=== PATIENT | female | born 1990 | race American Indian/Alaskan Native ===

== ENCOUNTER 2017-01-05 19:26 | Inpatient (IN) | payer MEDICAID ==
[2017-01-05] MEDS ORDERED: LACTATED RINGERS 500 ML IV ONE (20:12)
[2017-01-05 20:49] LABS: Bacteria,Urine 1+ /HPF (Negative); Bilirubin,Urine NEG (Negative); Blood,Urine NEG (Negative); Ketones,Urine 80 mg/dL (Negative); Leukocyte Esterase,Urine LG (Negative); Mucus,Urine 2+ /HPF; Nitrite,Urine NEG (Negative)
[2017-01-05] MEDS ORDERED: TYLENOL PO ONE (21:39)
[2017-01-05] MEDS ORDERED: VISTARIL PO ONE (21:42)
[2017-01-05 21:53] LABS: Basophils % (Auto) 0.3 % (0.0-1.8); Eosinophils % (Auto) 0.7 % (0.0-4.3); Hematocrit 28.7 % (30.3-42.9); Hemoglobin 8.8 gm/dl (10.1-14.3); Mean Corpuscular HGB Conc 31 % (30-34); Platelet Count 144 K/mm3 (140-440); Red Blood Count 4.21 M/mm3 (3.65-5.03); Red Cell Distribution Width 17.3 % (13.2-15.2); White Blood Count 11.2 K/mm3 (4.5-11.0)
[2017-01-05 22:10] LABS: Mean Corpuscular Volume 68 fl (79-97)
[2017-01-05 22:11] LABS: Mean Corpuscular Hemoglobin 21 pg (28-32)
[2017-01-05 22:13] LABS: Alanine Aminotransferase 7 units/L (7-56); Albumin 3.2 g/dL (3.9-5); Albumin/Globulin Ratio 0.9 %; Alkaline Phosphatase 111 units/L (35-129); Anion Gap 27 mmol/L; Blood Urea Nitrogen 4 mg/dL (7-17); Calcium 8.8 mg/dL (8.4-10.2); Carbon Dioxide 12 mmol/L (22-30); Chloride 98.1 mmol/L (98-107); Glucose 71 mg/dL (65-100); Potassium 3.7 mmol/L (3.6-5.0); Sodium 133 mmol/L (137-145); Total Protein 6.6 g/dL (6.3-8.2)
--- NOTE | 2017-01-05 22:32 | History and Physical Report ---
History of Present Illness Date of examination: 01/05/17 Chief complaint: Right side and pelvic pain History of present illness: This is a 26-year-old female 3 para 1102 who presents to triage complaining of right side and pelvic pain. She was evaluated in the office today without any complaints however she states shortly after she got home she started having right sided pain that became progressively worse. The pain radiated down into her pelvis. She had 1 episode of vomiting. However she denies fever and chills. Patient is a pain is severe and constant with exacerbations and worsening of pain every minute. She admits to positive movement she denies rupture of membranes or vaginal bleeding. Past History : 3 Term Births: 1 Premature Births: 1 Living Children: 2 Para: 1 Mult. Births: 0 Prev : 0 Prev. attempt? 0 Aborta: 0 Elect. Ab: 0 Spont. Ab: 0 Ectopics: 0 # 1 Delivery date: 11/24/2013 Weeks Gestation: 37 labor: no Delivery type: Hours of labor: 23 Anesthesia type: epidural Delivery location: [facility] Infant Sex: Male weight: 6-11 Name: Jabari # 2 Delivery date: 11/27/2014 Weeks Gestation: 36 Delivery type: Vaginal Anesthesia type: epidural Delivery location: [facility] Infant Sex: male weight: 5.81 Comments: rupture of membranes Past Medical History: Reviewed history from 08/28/2014 and no changes required: Negative Past Medical History Past Surgical History: Reviewed history from 08/28/2014 and no changes required: negative Past Medical History Anesthesia Complications: negative Anemia: negative Autoimmune Disorder: negative Bleeding Disorder: negative Blood Transfusions: negative Breast Disease: negative Diabetes: negative Heart Disease: negative Hypertension: negative Hepatitis/Liver Disease: negative Kidney Disease/UTI: negative Neurologic/Epilepsy/Migraines: negative Phlebitis/Varicosities: negative Psychiatric: negative Pulmonary Disease/Asthma: negative Thyroid Disease: negative Hospitalizations: negative Surgery (Non-brush maker): negative Abnormal PAP: negative ASIA Exposure: negative Infertility: negative Uterine Anomaly: negative Uterine Surgery (not C/S): negative Other Gynecologic Problems: negative Social Hx: Engaged [employer] Patient is single Infection History Hx of STD: none HIV Risk Eval: low risk Hepatitis B Risk Eval: low risk Personal hx. of genital herpes: no Partner hx. of genital herpes: no Varicella/Chicken Pox Status: Immunized TB Risk: no Genetic History Congenital Heart Defect: Mom: no Dad: no Mary Disease: Mom: no Dad: no Thalassemia Mom: no Dad: no Neural Tube Defect Mom: no Dad: no Down's Syndrome Mom: no Dad: no Mitch-Sachs Mom: no Dad: no Sickle Cell Disease/Trait Mom: no Dad: no Hemophilia Mom: no Dad: no Muscular Dystrophy Mom: no Dad: no Cystic Fibrosis Mom: no Dad: no [place] Chorea Mom: no Dad: no Mental Retardation Mom: no Dad: no Fragile X Mom: no Dad: no Other Genetic/Chromosomal Disorder Mom: no Dad: no Child w/other defect Mom: no Dad: no Enviromental Exposures Xray Exposure: no Medication, drug, or alcohol use since LMP: no Chemical/Other Exposure: no Exposure to Cat Liter: no Active Medications: None Current Allergies (reviewed today): CODEINE (Critical) Past History - Obstetrical History Expected Date of Delivery: 02/20/17 Actual Gestation: 33 Week(s) 3 Day(s) : 2 Medications and Allergies Allergies Allergy/AdvReac Type Severity Reaction Status Date / Time codeine Allergy Intermediate Vomiting Verified 01/05/17 22:39 morphine Allergy Vomiting Verified 03/20/15 22:52 Penicillins Allergy Vomiting Verified 03/20/15 22:52 Home Medications Medication Instructions Recorded Confirmed Last Taken Type Ondansetron [Zofran ODT TAB] 8 mg PO Q8HR PRN #20 tab.rapdis 03/21/15 Unknown Rx Review of Systems All systems: negative Gastrointestinal: abdominal pain, nausea Genitourinary: pelvic pain, contractions, no leakage of fluid - Vital Signs Vital signs: Vital Signs Temp Pulse Resp BP 98.7 F 113 H 18 128/72 01/05/17 19:34 01/05/17 19:34 01/05/17 19:34 01/05/17 19:34 Temp Pulse Resp BP Pulse Ox 98.7 F 113 H 18 128/72 01/05/17 19:34 01/05/17 19:34 01/05/17 19:34 01/05/17 19:34 Patient is sitting on the side of the bed crying and moaning complaining of excruciating pain - Physical Exam Breasts: Positive: deferred Lungs: Positive: Normal air movement Abdomen: Positive: tenderness (right side) Genitourinary (Female): Positive: normal external genitalia, normal perenium Vulva: both: normal Extremities: Positive: normal - Obstetrical FHR: category 1 Uterine Contraction Monitor Mode: External Cervical Dilatation: 0 Cervical Effacement Percentage: 0 station: -3 Uterine Contraction Pattern: Absent Uterine Tone Measurement Phase: Resting (Negative (B) CVAT and flank pain) Results Result Diagrams: 01/05/17 20:48 01/05/17 21:28 Abnormal lab results 01/05/17 01/05/17 01/05/17 Range/Units 19:40 20:48 21:28 WBC 11.2 H (4.5-11.0) K/mm3 Hgb 8.8 L (10.1-14.3) gm/dl Hct 28.7 L (30.3-42.9) % MCV 68 L (79-97) fl MCH 21 L (28-32) pg RDW 17.3 H (13.2-15.2) % Seg Neutrophils % 77.9 H (40.0-70.0) % Seg Neutrophils # 8.7 H (1.8-7.7) K/mm3 Sodium 133 L (137-145) mmol/L Carbon Dioxide 12 L (22-30) mmol/L BUN 4 L (7-17) mg/dL Creatinine 0.4 L (0.7-1.2) mg/dL Albumin 3.2 L (3.9-5) g/dL Urine WBC (Auto) 39.0 H (0.0-6.0) /HPF U Epithel Cells (Auto) 22.0 H (0-13.0) /HPF All other labs normal. CT scan - abdomen: pending CT scan - pelvis: pending Assessment and Plan - Patient Problems (1) 33 weeks gestation of Current Visit: Yes Status: Acute (2) Pelvic pain Current Visit: Yes Status: Acute Plan to address problem: Patient is afebrile no further vomiting. She has no evidence of chorioamnionitis Will proceed with CT scan to evaluate appendix (3) Right sided abdominal pain Current Visit: Yes Status: Acute
--- NOTE | 2017-01-05 23:53 | Cat Scan Report ---
FINAL REPORT PROCEDURE: CT ABDOMEN PELVIS WO CON TECHNIQUE: Computerized axial tomography of the abdomen and pelvis was performed without intravenous contrast. This study is performed without intravascular contrast material and its sensitivity for abdominal and pelvic pathology, including neoplasms, inflammation, abscess, free fluid, thrombosis, arterial dissection and infarction, is reduced compared with a contrast enhanced study. HISTORY: Evaluate for appendicitis rt sided pain COMPARISON: No prior studies are available for comparison. FINDINGS: Visualized lower thorax: No significant abnormality. Liver: Normal size and attenuation. Spleen: Normal size and attenuation. Gallbladder and biliary system: Normal. Pancreas: Normal. Adrenals: Normal. Kidneys: Normal. GI tract: Small and large bowel loops are within normal limits. Appendix is not distinctly visualized. There are no inflammatory changes in the pericecal region.. Lymph nodes and mesentery: Normal. Vasculature: Normal. Bladder: Normal. Reproductive organs: A well-developed the intrauterine fetus is identified with cephalic presentation. Peritoneum: No free fluid. Musculoskeletal structures: Scoliosis of the thoracolumbar spine is identified. Other: None. IMPRESSION: Appendix is not distinctly visualized. There are no inflammatory changes in the pericecal region. No obvious acute intra-abdominal or pelvic pathology noted.
[2017-01-06] MEDS ORDERED: COLACE PO PRN (00:31)
[2017-01-06] MEDS ORDERED: AMBIEN PO PRN (00:31)
[2017-01-06] MEDS ORDERED: TYLENOL PO PRN (00:31)
[2017-01-06] MEDS ORDERED: BENADRYL PO PRN (00:31)
[2017-01-06] MEDS ORDERED: MILK OF MAGNESIA PO PRN (00:31)
[2017-01-06] MEDS ORDERED: ZOFRAN IV PRN (00:31)
[2017-01-06] MEDS ORDERED: MYLICON PO PRN (00:31)
[2017-01-06] MEDS ORDERED: CELESTONE SOLUSPAN IM SCH (01:00)
[2017-01-06] MEDS: SUBLIMAZE IV PRN ×2 (01:12→05:35)
--- NOTE | 2017-01-06 01:23 | Event Note ---
Date: 01/06/17 Patient still complains of sever pain, CT scan w/o contrast negative, Prelim US report confirms flow to (R) ovary that is nml and AURA 23, vtx. Pain appears to be associated with baby's movements. She does not a surgical abdomen. Will admit for pain control and observation
[2017-01-06] MEDS ORDERED: TORADOL IV ONE (01:26)
[2017-01-06] MEDS: LACTATED RINGERS 1,000 ML IV SCH ×2 (01:54→09:51)
--- NOTE | 2017-01-06 02:16 | Ultrasound Report ---
FINAL REPORT PROCEDURE: US OB LIMITED TECHNIQUE: Real-time limited sonographic examination was performed for evaluation of size, position, heartbeat, fluid volume for each fetus with image documentation (1 or more fetuses). CPT 55725 HISTORY: pelvic pain COMPARISON: No prior studies are available for comparison. FINDINGS: Amniotic fluid index is 23.6 centimeters. Fetus is in a cephalic presentation. Heart rate is 138 beats per minute.. IMPRESSION: Limited exam. Amniotic fluid index is 23.6 centimeters. Fetus is in a cephalic presentation. Heart rate is 138 beats per minute..
--- NOTE | 2017-01-06 07:50 | Progress Note ---
Assessment and Plan 26y/o admitted for right sided abd pain. Patient resting quietly upon entering room. Patient states abd pain is still present, abd palpated soft in all quadrants. back to patient's left side with + fm palpated on right side. Patient groaning with movement during palpation and with audible movement on efm. EFM and toco adjusted - occasional ctx noted on toco. VSSAF. Will consult Dr. ocampo. - Patient Problems (1) 33 weeks gestation of Current Visit: Yes Status: Acute (2) Right sided abdominal pain Current Visit: Yes Status: Acute Subjective - Subjective Date of service: 01/06/17 Principal diagnosis: 33wks; right sided abd pain Patient reports: movement normal (pain with movements) Objective - Vital Signs Vital Signs: Vital Signs - 12hr 01/06/17 01/06/17 01/06/17 01:20 01:23 04:30 Temperature 98.6 F 98.6 F Pulse Rate 99 H Respiratory 16 20 Rate Blood Pressure 116/67 Blood Pressure 116/67 102/57 [Right Arm] 01/06/17 04:44 Temperature Pulse Rate 109 H Respiratory Rate Blood Pressure 102/57 Blood Pressure [Right Arm] - Exam Breasts: deferred Cardiovascular: Regular rate Lungs: Clear to auscultation, Normal air movement Abdomen: Present: normal appearance, soft Uterus: Present: normal FHR: auscultation normal Uterine Contraction Monitor Mode: External Uterine Contraction Pattern: Absent Uterine Tone Measurement Phase: Resting Extremities: normal Deep Tendon Reflex Grade: Normal +2 - Labs Labs: Abnormal Labs 01/05/17 01/05/17 01/05/17 19:40 20:48 21:28 WBC 11.2 H Hgb 8.8 L Hct 28.7 L MCV 68 L MCH 21 L RDW 17.3 H Seg Neutrophils % 77.9 H Seg Neutrophils # 8.7 H Sodium 133 L Carbon Dioxide 12 L BUN 4 L Creatinine 0.4 L Albumin 3.2 L Urine WBC (Auto) 39.0 H U Epithel Cells (Auto) 22.0 H Laboratory Results - last 24 hr 01/05/17 01/05/17 01/05/17 19:40 20:48 21:28 WBC 11.2 H RBC 4.21 Hgb 8.8 L Hct 28.7 L MCV 68 L MCH 21 L MCHC 31 RDW 17.3 H Plt Count 144 Lymph % (Auto) 15.0 [place] % (Auto) 6.1 Eos % (Auto) 0.7 Baso % (Auto) 0.3 Lymph # 1.7 [place] # 0.7 Eos # 0.1 Baso # 0.0 Seg Neutrophils % 77.9 H Seg Neutrophils # 8.7 H Sodium 133 L Potassium 3.7 Chloride 98.1 Carbon Dioxide 12 L Anion Gap 27 BUN 4 L Creatinine 0.4 L Estimated GFR > 60 BUN/Creatinine Ratio 10.00 Glucose 71 Calcium 8.8 Total Bilirubin 0.40 AST 16 ALT 7 Alkaline Phosphatase 111 Total Protein 6.6 Albumin 3.2 L Albumin/Globulin Ratio 0.9 Urine Color Yellow Urine Turbidity Slightly-cloudy Urine pH 6.0 Ur Specific [place] 1.024 Urine Protein 30 mg/dl Urine Glucose (UA) Neg Urine Ketones 80 Urine Blood Neg Urine Nitrite Neg Urine Bilirubin Neg Urine Urobilinogen 2.0 Ur Leukocyte Esterase Lg Urine WBC (Auto) 39.0 H Urine RBC (Auto) 3.0 U Epithel Cells (Auto) 22.0 H Urine Bacteria (Auto) 1+ Urine Mucus 2+ Blood Type Antibody Screen DENNY Antibody Screen 01/06/17 00:31 WBC RBC Hgb Hct MCV MCH MCHC RDW Plt Count Lymph % (Auto) [place] % (Auto) Eos % (Auto) Baso % (Auto) Lymph # [place] # Eos # Baso # Seg Neutrophils % Seg Neutrophils # Sodium Potassium Chloride Carbon Dioxide Anion Gap BUN Creatinine Estimated GFR BUN/Creatinine Ratio Glucose Calcium Total Bilirubin AST ALT Alkaline Phosphatase Total Protein Albumin Albumin/Globulin Ratio Urine Color Urine Turbidity Urine pH Ur Specific [place] Urine Protein Urine Glucose (UA) Urine Ketones Urine Blood Urine Nitrite Urine Bilirubin Urine Urobilinogen Ur Leukocyte Esterase Urine WBC (Auto) Urine RBC (Auto) U Epithel Cells (Auto) Urine Bacteria (Auto) Urine Mucus Blood Type A POSITIVE Antibody Screen Not Reportable DENNY Antibody Screen Negative
--- NOTE | 2017-01-06 08:03 | Admit Criteria Form ---
Admission Criteria Documentation: OBSTETRIC AND GYNECOLOGIC DISEASE GRG Clinical Indications for Admission to Inpatient Care (Place 'X' for any and all applicable criteria): Hospital admission is needed for appropriate care of the patient because of 1 or more of the following (1)(2)(3): [ ]I. Hemodynamic instability, as indicated by 1 or more of the following (1)( 2)(3)(4)(5): [ ]a) Vital signs or other findings not as expected for chronic patient condition or baseline [ ]b) Instability indicated by 1 or more of the following: [ ]i) Hypotension [ ]ii) Symptomatic tachycardia unresponsive to treatment (eg, analgesia, fluids, sedation as indicated) [ ]iii) Inadequate perfusion indicated by 1 or more of the following: [ ]A. Lactic acidosis (greater than 2 mmol/ L) [ ]B. New abnormal capillary refill ( greater than 3 seconds) [ ]C. Reduced urine output [ ]D. New altered mental status [ ]iv) Orthostatic vital sign changes unresponsive to treatment (eg, fluids) [ ]v) Multiple IV fluid boluses required to maintain adequate blood pressure or perfusion [ ]vi) IV inotropic or vasopressor medication required to maintain adequate blood pressure or perfusion [ ]II. Obstetric infection requiring hospitalization indicated by 1 or more of the following(13)(14): [ ]a) Chorioamnionitis [ ]b) Endometritis (except mild endometritis) [ ]c) Pelvic abscess [ ]d) Peritonitis [ ]e) Septic pelvic thrombophlebitis [ ]III. Amniotic fluid or pulmonary embolism(4)(5)(6) [ ]IV. Suspected peritonitis or ectopic requiring monitoring beyond scope of 24 hours or observation care(7)(8) [ ]V. compromise requiring hospitalization indicated by ALL of the following(9)(10): [ ]a) compromise indicated by 1 or more of the following(11): [ ]i) Abnormal heart rate monitoring [ ]ii) Abnormal contraction stress test [ ]iii) Abnormal biophysical profile [ ]iv) Abnormal Doppler flow in vessels (ie, Doppler velocimetry) (12) [ ]b) Persistence of compromise indicators during evaluation and observation monitoring [ ]. Ovarian hyperstimulation syndrome requiring hospitalization[A] indicated by ALL of the following(15): [ ]a) Recent ovarian stimulation with gonadotropins, or evidence on ultrasound of spontaneous emergence of large number of ovarian follicles [ ]b) Evidence of severe ovarian hyperstimulation syndrome indicated by 1 or more of the following: [ ]i) Abdominal pain unresponsive to oral therapy [ ]ii) Acute respiratory distress syndrome [ ]iii) Electrolyte imbalance ( eg, hyponatremia, hyperkalemia) [ ]iv) Elevated liver enzymes [ ]v) Evidence of thromboembolism [ ]vi) Hemoconcentration (hematocrit greater than 45 % (0.45)) [ ]vii) Inability to maintain oral intake adequate to prevent hemoconcentration [ ]viii) Marked hypotension from baseline (eg, SBP 20 mmHg below patients usual pressure) [ ]ix) Oliguria or anuria [ ]x) Ovarian torsion [ ]xi) Pleural or pericardial effusion on x-ray or echocardiogram [ ]xii) Rapid increase in serum creatinine to greater than 1.2 mg/dL (106 micromoles/L) or creatinine clearance less than 50 mL/min/1.73m2 (0.84 mL/ sec/1.73m2) [ ]xiii) Ruptured ovarian cyst with hemorrhage [ ]xiv) Severe abdominal pain or peritoneal signs [ ]xv) Tense ascites that cannot be managed with paracentesis in outpatient setting [ ]VII.Pelvic infection requiring hospitalization indicated by 1 or more of the following (16): [ ]a) Outpatient treatment has failed or is not appropriate (eg, inpatient monitoring required) [ ]b) Pelvic abscess [ ]c) Surgical emergency cannot be excluded (eg, rigid abdomen) [ ]d) Vomiting precluding outpatient and observation care management VIII. loss complications requiring inpatient medical treatment indicated by 1 or more of the following (4)(7)(9): [ ]a) Fever [ ]b) Peritonitis [ ]c) Sepsis [ ]d) Severe abdominal pain [ ]IX. or patient requiring monitoring for severe heart failure, pulmonary disease, or other comorbid condition (eg, peripartum cardiomyopathy) (4)(17) [ ]X. patient with rupture of membranes requiring hospitalization indicated by ANY ONE of the following: [ ]a) Chorioamnionitis, cloudy amniotic fluid, or other evidence of infection [ ]b) compromise or other need for monitoring (11) [ ]c) Gestation longer than 23 weeks and ANY ONE of the following: [ ]i) Abnormal (noncephalic) presentation [ ]ii) Inadequate home environment (eg, home too far from hospital, unable to rapidly return to hospital) [ ]d) Temperature greater than 100.4 degrees F (38 degrees C)( oral) [ ]e) Threatened labor requiring monitoring beyond scope (eg, over 24 hours) of observation Care [ ] XI. complications, including severe lacerations, infections, or retained placenta (19) [ ] XII.Uterine bleeding with high-risk features indicated by ANY ONE of the following (4): [ ]a) Active major hemorrhage (eg, hemorrhage) [ ]b) Coagulopathy with active bleeding [ ]c) Gestational trophoblastic disease (eg, molar ) (20 ) [ ]d) (longer than 23 weeks) and ANY ONE of the following: [ ]i) Pain [ ]ii) Placental abruption, known or suspected [ ]iii) Placenta accrete, known or suspected(21) [ ]iv) Placenta previa, known or suspected [ ]v) Vasa previa [ ]e) Severe anemia [X]XIII. Obstetric or Gynecologic Disease, condition or symptom for which ANY ONE of the following: [ ]a) Emergency and observation care have failed or are not considered appropriate ( Also use General Criteria: Observation Care Criteria as appropriate) [ ]b) Presence of a General Admission Criteria or Pediatric General Admission Criteria The original [facility] content created by [facility] has been revised. The portions of the content which have been revised are identified through the use of italic text or in bold, and [facility] has neither reviewed nor approved the modified material.All other unmodified content is copyright [facility]. Please see references footnoted in the original [facility] edition 2016 Admission Criteria Met: Yes
[2017-01-06 08:33] VITALS: BP 109/57
--- NOTE | 2017-01-06 09:21 | Event Note ---
Date: 01/06/17 dr. ocampo consulted, orders for patient to be NPO. ARRON Canales notified
[2017-01-06] MEDS ORDERED: PRENATAL VITAMIN PO SCH (10:00)
--- NOTE | 2017-01-06 13:51 | Event Note ---
Date: 01/06/17 Patient presently laying in bed does complain of being hungry. Patient revealed to me that on yesterday I believe and off and she did go [employer] and after eating she had multiple episodes of vomiting followed by this right- sided pain. Patient still just has some pain with him movement. Patient imaging all been normal. Possible explanations as musculoskeletal pain. Will treat with Flexeril and follow-up in office in 2 days.
--- NOTE | 2017-01-06 13:56 | Discharge Summary ---
Providers - Providers Date of Admission: 01/06/17 01:01 Date of discharge: 01/06/17 Attending physician: JESUS RAHMAN Primary care physician: JESUS RAHMAN Hospitalization Reason for admission: right side pain in her urine at 33 weeks Pertinent studies: CT scan OB ultrasound IV analgesia's Procedures: monitoring CT scan and ultrasound Hospital course: Please see H&P for details. All imaging the patient return at normal patient pain appears to be consistent with musculoskeletal pain. Patient did have irregular contractions but no evidence of labor. Disposition: DC-01 TO HOME OR SELFCARE - Discharge Diagnoses (1) Musculoskeletal pain Status: Acute (2) 33 weeks gestation of Status: Acute (3) Right sided abdominal pain Status: Acute Core Measure Documentation - Palliative Care Palliative Care/ Comfort Measures: Not Applicable - Core Measures Any of the following diagnoses?: none Exam - Constitutional Vitals: Temp Pulse Resp BP Pulse Ox 98.1 F 112 H 20 109/57 98 01/06/17 08:32 01/06/17 12:48 01/06/17 08:32 01/06/17 08:32 01/06/17 12:48 General appearance: Present: no acute distress - Respiratory Respiratory effort: normal - Cardiovascular Rhythm: regular - Extremities Extremities: no ischemia - Abdominal General gastrointestinal: Present: soft, tender (improve on sides no CVA tenderness) Female genitourinary: Present: deferred - Rectal Rectal Exam: deferred - Integumentary Integumentary: Present: clear, warm, dry Plan Activity: advance as tolerated Diet: regular Additional Instructions: Patient discharged with labor precautions she's follow- up in office on January 08 at 1:30 PM Follow up with: JESUS RAHMAN MD [Primary Care Provider] - 7 Days Prescriptions: Cyclobenzaprine [Flexeril] 10 mg PO TID PRN #14 tablet PRN Reason: Muscle Spasm
[2017-01-06] MEDS ORDERED: FLEXERIL PO ONE (14:44)
== END 2017-01-06 15:51 | disposition home or self-care (01) | DRG 781 ==
LOC: TRG 19:26 → LD 01-06 01:01 → OBSVTOIN 01-06 01:01
PROVIDERS: ADMIT Obstetrics & Gynecology; ATTEND Obstetrics & Gynecology
DX: O99.89 Other specified diseases and conditions complicating pregnancy, childbirth and the puerperium (principal); O26.893 Other specified pregnancy related conditions, third trimester; R10.2 Pelvic and perineal pain; R10.9 Unspecified abdominal pain; M79.1 Myalgia; Z3A.33 33 weeks gestation of pregnancy; Z88.6 Allergy status to analgesic agent; Z88.0 Allergy status to penicillin
CPT/HCPCS: 36415; 74176; 76815; 80053; 81001; 85025; 86850; 86900; 86901; 87086; J0702; J1885; J3010; J7120; Q0177

== ENCOUNTER 2017-02-03 12:46 | Outpatient (CLI) | payer MEDICAID ==
[2017-02-03 13:17] VITALS: BP 120/77
[2017-02-03] MEDS ORDERED: LACTATED RINGERS 500 ML IV ONE (14:00)
[2017-02-03 14:44] LABS: Bilirubin,Urine NEG (Negative); Blood,Urine NEG (Negative); Ketones,Urine NEG (Negative); Leukocyte Esterase,Urine SM (Negative); Mucus,Urine 1+ /HPF; Nitrite,Urine NEG (Negative)
== END 2017-02-03 17:10 | disposition home or self-care (01) ==
LOC: TRG 12:46
PROVIDERS: ATTEND Obstetrics & Gynecology
DX: O47.1 False labor at or after 37 completed weeks of gestation (principal); Z3A.38 38 weeks gestation of pregnancy
CPT/HCPCS: 59025; 81001; 96360; J7120

== ENCOUNTER 2017-02-09 20:16 | Inpatient (IN) | payer MEDICAID ==
[2017-02-09] MEDS ORDERED: ZOFRAN IV PRN (20:46)
[2017-02-09] MEDS ORDERED: MINERAL OIL PO PRN (20:46)
[2017-02-09] MEDS ORDERED: SUBLIMAZE IV PRN (20:46)
[2017-02-09] MEDS ORDERED: ePHEDrine SULFATE IV PRN ×2 (20:46→22:47)
[2017-02-09] MEDS ORDERED: STADOL IV PRN (20:46)
[2017-02-09] MEDS ORDERED: BRETHINE SUB-Q PRN (20:53)
--- NOTE | 2017-02-09 20:54 | History and Physical Report ---
History of Present Illness Date of examination: 02/09/17 Chief complaint: Labor contractions q2-5 minutes x 2 hours. 4cms in office, no 5cms w/ BBOW History of present illness: EDC Calculations LMP: 02/20/2017 EDC Confirmation: 02/20/2017 Gestational Age: 10 3/7 weeks Past History : 3 Term Births: 1 Premature Births: 1 Living Children: 2 Para: 1 Mult. Births: 0 Prev : 0 Prev. attempt? 0 Aborta: 0 Elect. Ab: 0 Spont. Ab: 0 Ectopics: 0 # 1 Delivery date: 11/24/2013 Weeks Gestation: 37 labor: no Delivery type: Hours of labor: 23 Anesthesia type: epidural Delivery location: [facility] Sex: Male weight: 6-11 Name: Jabari # 2 Delivery date: 11/27/2014 Weeks Gestation: 36 Delivery type: Vaginal Anesthesia type: epidural Delivery location: [facility] Sex: male weight: 5.81 Comments: rupture of membranes Past Medical History: Reviewed history from 08/28/2014 and no changes required: Negative Past Medical History Past Surgical History: Reviewed history from 08/28/2014 and no changes required: negative Past Medical History Anesthesia Complications: negative Anemia: negative Autoimmune Disorder: negative Bleeding Disorder: negative Blood Transfusions: negative Breast Disease: negative Diabetes: negative Heart Disease: negative Hypertension: negative Hepatitis/Liver Disease: negative Kidney Disease/UTI: negative Neurologic/Epilepsy/Migraines: negative Phlebitis/Varicosities: negative Psychiatric: negative Pulmonary Disease/Asthma: negative Thyroid Disease: negative Hospitalizations: negative Surgery (Non-fur matcher): negative Abnormal PAP: negative ASIA Exposure: negative Infertility: negative Uterine Anomaly: negative Uterine Surgery (not C/S): negative Other Gynecologic Problems: negative Social Hx: Engaged [employer] Patient is single Infection History Hx of STD: none HIV Risk Eval: low risk Hepatitis B Risk Eval: low risk Personal hx. of genital herpes: no Partner hx. of genital herpes: no Varicella/Chicken Pox Status: Immunized TB Risk: no Genetic History Congenital Heart Defect: Mom: no Dad: no Mary Disease: Mom: no Dad: no Thalassemia Mom: no Dad: no Neural Tube Defect Mom: no Dad: no Down's Syndrome Mom: no Dad: no Mitch-Sachs Mom: no Dad: no Sickle Cell Disease/Trait Mom: no Dad: no Hemophilia Mom: no Dad: no Muscular Dystrophy Mom: no Dad: no Cystic Fibrosis Mom: no Dad: no [place] Chorea Mom: no Dad: no Mental Retardation Mom: no Dad: no Fragile X Mom: no Dad: no Other Genetic/Chromosomal Disorder Mom: no Dad: no Child w/other defect Mom: no Dad: no Enviromental Exposures Xray Exposure: no Medication, drug, or alcohol use since LMP: no Chemical/Other Exposure: no Exposure to Cat Liter: no Active Medications: None Current Allergies (reviewed today): CODEINE (Critical) Past History - Obstetrical History Expected Date of Delivery: 02/20/17 Actual Gestation: 38 Week(s) 3 Day(s) : 3 Para: 2 Hx # Term Pregnancies: 1 Number of Pregnancies: 1 Spontaneous Abortions: 0 Induced : 0 Number of Living Children: 2 Medications and Allergies Allergies Allergy/AdvReac Type Severity Reaction Status Date / Time morphine Allergy Severe Vomiting Verified 01/05/17 23:39 codeine Allergy Intermediate Vomiting Verified 01/05/17 22:39 Home Medications Medication Instructions Recorded Confirmed Last Taken Type Ondansetron [Zofran ODT TAB] 8 mg PO Q8HR PRN #20 tab.rapdis 03/21/15 01/06/17 Unknown Rx Cyclobenzaprine [Flexeril] 10 mg PO TID PRN #14 tablet 01/06/17 Unknown Rx Active Meds: Active Medications Lactated Ringer's (Lactated Ringers) 1,000 mls @ 999 mls/hr IV BOLUS ONE Stop: 02/09/17 21:23 Review of Systems All systems: negative - Vital Signs Vital signs: Vital Signs Temp Pulse Resp BP Pulse Ox 98.6 F 117 H 22 120/91 96 02/09/17 20:37 02/09/17 20:37 02/09/17 20:37 02/09/17 20:37 02/09/17 20:37 Temp Pulse Resp BP Pulse Ox 98.6 F 110 H 22 137/92 99 02/09/17 20:37 02/09/17 20:42 02/09/17 20:37 02/09/17 20:39 02/09/17 20:42 - Physical Exam Breasts: Positive: normal Cardiovascular: Regular rate Lungs: Positive: Clear to auscultation, Normal air movement Abdomen: Positive: normal appearance, soft Genitourinary (Female): Positive: normal external genitalia, normal perenium Vulva: both: normal Vagina: Positive: normal moisture Anus/Rectum: Positive: normal perianal skin Extremities: Positive: normal Deep Tendon Reflex Grade: Normal +2 - Obstetrical FHR: category 1 Uterine Contraction Monitor Mode: External Cervical Dilatation: 5 (BBOW) Cervical Effacement Percentage: 60 station: -2 Uterine Contraction Frequency (min): 3-5 Uterine Contraction Duration: 60 Uterine Contraction Pattern: Regular Uterine Tone Measurement Phase: Contraction Uterine Contraction Intensity: Moderate Results All other labs normal. Assessment and Plan 26y/o @ 38+3 weeks, laboring with regular ctx and SVE 5/60/-2 BBOW. patient has had 2 elevated b/p that I believe are pain related. Will order pre- e labs and continue to monitor b/p. vertex, GBS NEG. plan for admission, epidural, augmentation if needed and anticipate delivery. Admission orders in chart. - Patient Problems (1) Active labor at term Current Visit: Yes Status: Acute (2) Anemia, iron deficiency, inadequate dietary intake Current Visit: Yes Status: Acute (3) 38 weeks gestation of Current Visit: Yes Status: Acute
[2017-02-09] MEDS ORDERED: LACTATED RINGERS 1,000 ML IV ONE (21:23)
[2017-02-09] MEDS: LACTATED RINGERS 1,000 ML IV SCH ×2 (21:40→23:51)
[2017-02-09 21:50] LABS: Hemoglobin 8.3 gm/dl (10.1-14.3); Mean Corpuscular HGB Conc 31 % (30-34); Red Blood Count 4.22 M/mm3 (3.65-5.03); Red Cell Distribution Width 19.1 % (13.2-15.2); White Blood Count 5.7 K/mm3 (4.5-11.0)
[2017-02-09 21:55] LABS: Mean Corpuscular Hemoglobin 20 pg (28-32); Mean Corpuscular Volume 64 fl (79-97); Platelet Count 117 K/mm3 (140-440)
[2017-02-09] MEDS ORDERED: PITOCin/NS 20 UNIT/1000ML DRIP 20 UNITS/1,000 ML BAG IV SCH (22:00)
[2017-02-09] MEDS ORDERED: PITOCin/NS 30 UNIT/500ML 30 UNITS/500 ML BAG IV SCH (22:00)
[2017-02-09] MEDS ORDERED: XYLOCAINE 2% INFILTRATI ONE (22:00)
[2017-02-09 22:14] LABS: Alanine Aminotransferase 9 units/L (7-56); Lactate Dehydrogenase 286 units/L (91-180); Uric Acid 4.2 mg/dL (3.5-7.6)
[2017-02-09] MEDS ORDERED: NARCAN 2 MG/2 ML IV PRN (22:47)
--- NOTE | 2017-02-09 22:47 | Anesthesia Consultation ---
Anesthesia Consult and Med Hx Date of service: 02/09/17 - Airway Anesthetic Teeth Evaluation: Good ROM Head & Neck: Adequate Mental/Hyoid Distance: Adequate Mallampati Class: Class II Intubation Access Assessment: Good - Pulmonary Exam CTA: Yes - Cardiac Exam Cardiac Exam: No Murmur - Pre-Operative Health Status ASA Pre-Surgery Classification: ASA2 Proposed Anesthetic Plan: Epidural - Pulmonary Hx Smoking: No Hx Asthma: No COPD: No Hx Pneumonia: No Hx Sleep Apnea: No - Cardiovascular System Hx Hypertension: No Hx Heart Attack/AMI: No Hx Valvular Heart Disease: No - Central Nervous System Hx Seizures: No CVA: No Hx Psychiatric Problems: No - Gastrointestinal Hx Gastroesophageal Reflux Disease: No - Endocrine Hx Renal Disease: No Hx End Stage Renal Disease: No Hx Liver Disease: No Hx Hypothyroidism: No Hx Hyperthyroidism: No - Hematic Hx Anemia: No Hx Sickle Cell Disease: No - Other Systems Hx Alcohol Use: No Hx Substance Use: No Hx Cancer: No Hx Obesity: No
[2017-02-09] MEDS ORDERED: fentaNYL-BUPIV 2 MCG/ML-0.125% 200 MCG/100 ML BAG EPIDURAL SCH (23:00)
[2017-02-10] MEDS ORDERED: PHENERGAN PR PRN (01:02)
[2017-02-10 01:24] LABS: Bilirubin,Urine NEG (Negative); Blood,Urine NEG (Negative); Ketones,Urine NEG (Negative); Leukocyte Esterase,Urine TR (Negative); Mucus,Urine FEW /HPF; Nitrite,Urine NEG (Negative); Protein,Urine <15 mg/dL mg/dL (Negative); Urobilinogen,Urine < 2.0 mg/dL (<2.0)
[2017-02-10] MEDS ORDERED: XYLOCAINE 2% INFILTRATI ONE (03:18)
[2017-02-10] MEDS: LACTATED RINGERS 1,000 ML IV SCH (03:28)
--- NOTE | 2017-02-10 05:00 | Procedure Note ---
OB Delivery Note - Delivery Date of Delivery: 02/10/17 ( male) Web [employer] Operator Apprentice: DANNIE WILLIAMSON Estimated blood loss: other (250) - Vaginal Delivery presentation: vertex Delivery position: OA Intrapartum events: none Delivery induction: none Delivery augmentation: rupture of membranes, pitocin Delivery monitor: external FHT, external uterine Route of delivery: Delivery placenta: spontaneous Delivery cord: 3 umbilical vessels Episiotomy: none Delivery laceration: none Anesthesia: epidural Delivery comments: male del over intact perienum, anterior shoulder del without difficulty. cord around body x 1. placed skin to skin on mother's abd, 3 vessel cord clamped and cut. Cord blood collected. Placenta del intact and complete. Pit to IVF. Weight - 7#9, apgars 8/9, maternal EBL 250. Mother and infant remain LDR stable. - A at 1 minute: 8 at 5 minutes: 9 Infant Gender: Male (7#9oz)
[2017-02-10] MEDS ORDERED: MOTRIN PO ONE (06:48)
[2017-02-10] MEDS ORDERED: SODIUM CHLORIDE FLUSH SYRINGE 10 ML IV PRN (09:00)
[2017-02-10] MEDS ORDERED: PITOCin/NS 20 UNIT/1000ML DRIP 20 UNITS/1,000 ML BAG IV SCH (09:00)
[2017-02-10] MEDS ORDERED: PHENERGAN PO PRN (09:30)
[2017-02-10] MEDS ORDERED: NORCO 5/325 PO PRN (09:30)
[2017-02-10] MEDS ORDERED: TYLENOL PO PRN (09:30)
[2017-02-10] MEDS ORDERED: BENADRYL PO PRN (09:30)
[2017-02-10] MEDS ORDERED: TUCKS PAD TP PRN (09:30)
[2017-02-10] MEDS ORDERED: LANSINOH TP PRN (09:30)
[2017-02-10] MEDS: FLEXERIL PO SCH ×3 (09:57→20:40)
[2017-02-10] MEDS ORDERED: DULCOLAX PR PRN (10:00)
[2017-02-10] MEDS: COLACE PO SCH ×2 (10:57→22:08)
[2017-02-10] MEDS: PRENATAL VITAMIN PO SCH (10:57)
[2017-02-10] MEDS: FEOSOL PO SCH ×2 (10:57→22:08)
[2017-02-10] MEDS: MOTRIN PO SCH ×2 (14:12→20:40)
[2017-02-10 17:06] LABS: Hematocrit 26.5 % (30.3-42.9); Hemoglobin 8.3 gm/dl (10.1-14.3)
[2017-02-10] MEDS ORDERED: MILK OF MAGNESIA PO PRN (22:00)
[2017-02-11] MEDS: MOTRIN PO SCH ×2 (05:15→12:51)
[2017-02-11] MEDS ORDERED: BOOSTRIX IM ONE (06:00)
--- NOTE | 2017-02-11 09:11 | Discharge Summary ---
Providers - Providers Date of Admission: 02/09/17 21:03 Date of discharge: 02/11/17 (pt agrees to d/c ) Attending physician: ROSALIA LUCIANO Primary care physician: ROSALIA LUCIANO Hospitalization Reason for admission: active labor Delivery: Episiotomy: none Laceration: none Incision: normal Other procedures: none complications: none Discharge diagnosis: IUP at term delivered [place] baby: male Hospital course: uncomplicated vaginal delivery Pt w/o complaint Desires d/c VSS FF below umb Lochia small Perineum intact Chronic anemia H&H 02/13 stable from admission Pt doing well s/p vag delivery P: d/c today with instructions RX provided Condition at discharge: Good Disposition: DC-01 TO HOME OR SELFCARE - Discharge Diagnoses (1) (normal spontaneous vaginal delivery) Status: Acute Comment: rto 4 weeks for PP care Plan - Discharge Medications Prescriptions: Ferrous Sulfate [Feosol 325 MG tab] 325 mg PO TID #90 tablet Ibuprofen [Motrin 800 MG tab] 800 mg PO Q8HR PRN #30 tablet PRN Reason: Pain Lidocain2.5%/Prilocai2.5% [Emla] 5 gm TP ONCE PRN #1 tube PRN Reason: Pain - Provider Discharge Summary Activity: routine, no sex for 6 weeks, no heavy lifting 4 weeks, no strenuous exercise Diet: routine Instructions: routine Additional instructions: [] Smoking cessation referral if applicable(refer to patient education folder for contact #) [] Refer to [facility]'s [facility] Booklet Call your doctor immediately for: * Fever > 100.5 * Heavy vaginal bleeding ( >1 pad per hour) * Severe persistent headache * Shortness of breath * Reddened, hot, painful area to leg or breast * Drainage or odor from incision. * Keep incision clean and dry at all times and follow doctor's instructions regarding bathing/showering - Follow up plan Follow up: ROSALIA LUCIANO MD [Primary Care Provider] - 7 Days (Congratulations! Please call [phone] to schedule your visit in 4 weeks. Schedule your son's circumcision in 1 week. Bring the EMLA cream with you to his visit. Take medications as prescribed. Call with any concerns. )
[2017-02-11] MEDS: FLEXERIL PO SCH (10:57)
[2017-02-11] MEDS: COLACE PO SCH (10:59)
[2017-02-11] MEDS: FEOSOL PO SCH (10:59)
[2017-02-11] MEDS: PRENATAL VITAMIN PO SCH (10:59)
[2017-02-11 14:24] VITALS: BP 136/71
== END 2017-02-11 15:25 | disposition home or self-care (01) | DRG 775 ==
LOC: TRG 20:16 → LD 21:03 → OB 02-10 08:46
PROVIDERS: ADMIT Obstetrics & Gynecology; ATTEND Obstetrics & Gynecology
PROC: 10E0XZZ Delivery of Products of Conception, External Approach (ICD-10-PCS; principal; 2017-02-10)
PROC: 00HU33Z Insertion of Infusion Device into Spinal Canal, Percutaneous Approach (ICD-10-PCS; 2017-02-10)
PROC: 3E0R3CZ (ICD-10-PCS; 2017-02-10)
DX: O99.02 Anemia complicating childbirth (principal); D50.8 Other iron deficiency anemias; Z3A.38 38 weeks gestation of pregnancy; Z37.0 Single live birth; Z88.6 Allergy status to analgesic agent
CPT/HCPCS: 36415; 81001; 82565; 83615; 84450; 84460; 84550; 85014; 85018; 85027; 86592; 86850; 86900; 86901; 99211; G0463; J0595; J2405; J2590; J7120

== ENCOUNTER 2017-06-30 17:48 | Emergency (ER) | payer SELFPAY ==
[2017-06-30] MEDS ORDERED: ZOFRAN ONE (18:21)
[2017-06-30] MEDS ORDERED: PEPCID IV ONE ×2 (18:21→18:37)
[2017-06-30] MEDS ORDERED: TORADOL ONE ×2 (18:21→18:22)
[2017-06-30] MEDS ORDERED: NACL 0.9% 1000 ML 1,000 ML ONE (18:23)
[2017-06-30] MEDS ORDERED: ZOFRAN IV ONE ×2 (18:37→23:44)
[2017-06-30] MEDS ORDERED: TORADOL IV ONE (18:37)
[2017-06-30 19:36] LABS: Hematocrit 38.9 % (30.3-42.9); Hemoglobin 12.5 gm/dl (10.1-14.3); Mean Corpuscular HGB Conc 32 % (30-34); Mean Corpuscular Hemoglobin 27 pg (28-32); Mean Corpuscular Volume 84 fl (79-97); Platelet Count 196 K/mm3 (140-440); Red Blood Count 4.64 M/mm3 (3.65-5.03); Red Cell Distribution Width 15.7 % (13.2-15.2)
[2017-06-30 20:01] LABS: Alanine Aminotransferase 17 units/L (7-56); Albumin 4.3 g/dL (3.9-5); BUN/Creatinine Ratio 14; Blood Urea Nitrogen 7 mg/dL (7-17); Hemolysis Index 4
[2017-06-30 20:30] LABS: Anisocytosis RARE; Basophils % (Manual) 0 % (0.0-1.8); Hypochromasia Rare; Total Cells Counted 100
[2017-06-30 20:31] LABS: Platelet Estimate Consistent w Auto
[2017-06-30 22:01] LABS: Bacteria,Urine 1+ /HPF (Negative); Bilirubin,Urine NEG (Negative); Blood,Urine NEG (Negative); Color,Urine Yellow (Yellow); HCG Qualitative,Urine Negative (Negative); Mucus,Urine 1+ /HPF; Nitrite,Urine NEG (Negative); Urobilinogen,Urine < 2.0 mg/dL (<2.0)
[2017-06-30] MEDS ORDERED: NACL 0.9% 1000 ML 1,000 ML IV ONE ×2 (23:24→23:50)
[2017-06-30] MEDS ORDERED: MORPHINE IV ONE (23:50)
--- NOTE | 2017-07-01 01:32 | Ultrasound Report ---
FINAL REPORT EXAM: US ABDOMEN COMPLETE HISTORY: ruq pain n,v COMPARISON: CT abdomen pelvis December 2016. TECHNIQUE: Several real-time grayscale and color Doppler images were obtained. FINDINGS: Homogeneous echogenicity the visualized portions of the liver and pancreas. Right kidney measures 11.5 centimeters in length. Left kidney measures 10.4 centimeters. At the superior margin right kidney, there is a 5 millimeter echogenic structure without associated shadowing. This may reflect a tiny benign angiomyolipoma. No hydronephrosis bilaterally. The common bile duct measures 1 millimeter. No biliary dilatation. Visualized portal vein is patent. Technologists measures echogenic structure at the margin the gallbladder. This appears to represent the adjacent duodenum or colon compressing against the gallbladder. There does appear to be a tiny non shadowing stone. No gallbladder wall thickening or pericholecystic fluid. IMPRESSION: There is at least 1 tiny gallstone. No inflammatory changes the gallbladder biliary dilatation by ultrasound. 5 millimeter echogenic lesion at the superior margin right kidney most compatible tiny benign angiomyolipoma. This was not seen on prior CT. No hydronephrosis bilaterally.
--- NOTE | 2017-07-01 01:35 | Emergency Department Report ---
ED Abdominal Pain HPI - General Chief Complaint: Abdominal Pain Stated Complaint: ABD PAIN Time Seen by Provider: 06/30/17 23:43 Source: patient Mode of arrival: Ambulatory Limitations: No Limitations - History of Present Illness Initial Comments: 26-year-old female in no past surgical or medical history presents to the hospital with complaints of right upper quadrant and epigastric pain since noon. Pain is constant, twisting, and severe rated 10/10 intensity. Worse to palpation. No alleviating factors. Associated with bilious vomitus. Patient denies fever, diarrhea, recent travel, sick contacts, melena, hematochezia, or hematemesis. Patient delivered a baby in January. LMP 06/21/2017 Severity scale (0 -10): 8 - Related Data Previous Rx's Medication Instructions Recorded Last Taken Type Ondansetron [Zofran ODT TAB] 8 mg PO Q8HR PRN #20 tab.rapdis 03/21/15 Unknown Rx Cyclobenzaprine [Flexeril] 10 mg PO TID PRN #14 tablet 01/06/17 Unknown Rx Ferrous Sulfate [Feosol 325 MG tab] 325 mg PO TID #90 tablet 02/10/17 Unknown Rx Ibuprofen [Motrin 800 MG tab] 800 mg PO Q8HR PRN #30 tablet 02/10/17 Unknown Rx Lidocain2.5%/Prilocai2.5% [Emla] 5 gm TP ONCE PRN #1 tube 02/10/17 Unknown Rx Famotidine [Pepcid] 20 mg PO BID #20 tablet 07/01/17 Unknown Rx HYDROcodone/ACETAMINOPHEN [[place] 1 each PO Q4-6H PRN #20 tablet 07/01/17 Unknown Rx 5-325 Tablet] Ondansetron [Zofran Odt] 4 mg PO Q8HR PRN #20 tab.rapdis 07/01/17 Unknown Rx Promethazine [Phenergan] 25 mg NV Q6HR PRN #20 supp.rect 07/01/17 Unknown Rx Allergies Allergy/AdvReac Type Severity Reaction Status Date / Time codeine Allergy Intermediate Vomiting Verified 01/05/17 22:39 ED Review of Systems ROS: Stated complaint: ABD PAIN Other details as noted in HPI Comment: All other systems reviewed and negative Other: Constitutional: No fevers chills Eyes: No eye pain visual changes or discharge ENT: No ear pain or throat pain Neck: Denies pain Respiratory: Denies cough wheezing shortness of breath Cardiovascular: Denies chest pain, palpitations, syncope GI: As per HPI : Denies dysuria Musculoskeletal: Denies back pain, joint swelling Skin: Denies rash, lesions, erythema Neurologic: Denies headache, numbness, weakness Psychiatric: Denies suicidal ideation, hallucinations ED Past Medical Hx - Past Medical History Hx Hypertension: No Hx Heart Attack/AMI: No Hx Congestive Heart Failure: No Hx Diabetes: No Hx Deep Vein Thrombosis: No Hx Pulmonary Embolism: No Hx Liver Disease: No Hx Renal Disease: No Hx Sickle Cell Disease: No Hx Headaches / Migraines: No Hx Seizures: No Hx Asthma: No Hx COPD: No Hx Tuberculosis: No Hx HIV: No Additional medical history: SCOLIOSIS - Surgical History Additional Surgical History: Right Knee surgery 03/20/15 - Social History Smoking Status: Never Smoker Substance Use Type: None - Medications Home Medications: Home Medications Medication Instructions Recorded Confirmed Last Taken Type Ondansetron [Zofran ODT TAB] 8 mg PO Q8HR PRN #20 tab.rapdis 03/21/15 02/10/17 Unknown Rx Cyclobenzaprine [Flexeril] 10 mg PO TID PRN #14 tablet 01/06/17 02/10/17 Unknown Rx Ferrous Sulfate [Feosol 325 MG tab] 325 mg PO TID #90 tablet 02/10/17 Unknown Rx Ibuprofen [Motrin 800 MG tab] 800 mg PO Q8HR PRN #30 tablet 02/10/17 Unknown Rx Lidocain2.5%/Prilocai2.5% [Emla] 5 gm TP ONCE PRN #1 tube 02/10/17 Unknown Rx Famotidine [Pepcid] 20 mg PO BID #20 tablet 07/01/17 Unknown Rx HYDROcodone/ACETAMINOPHEN [[place] 1 each PO Q4-6H PRN #20 tablet 07/01/17 Unknown Rx 5-325 Tablet] Ondansetron [Zofran Odt] 4 mg PO Q8HR PRN #20 tab.rapdis 07/01/17 Unknown Rx Promethazine [Phenergan] 25 mg NV Q6HR PRN #20 supp.rect 07/01/17 Unknown Rx ED Physical Exam - General Limitations: No Limitations - Other Other exam information: General: No limitations, patient is alert in no acute distress Head exam: Atraumatic, normocephalic Eyes exam: Normal appearance, nonicteric sclerae ENT: Moist mucous membrane, normal oropharynx Neck exam: Normal inspection, full range of motion, no meningismus nontender Respiratory exam: Clear to auscultation bilateral, no wheezes, rales, crackles Cardiovascular: Normal rate and rhythm, normal heart sounds Abdomen: Soft, nondistended, epigastric tenderness, maximal tenderness in the right upper quadrant. No rebound or guarding. Normal bowel sounds Extremity: Full range of motion normal inspection no deformity Back: Normal Inspection, full range of motion, no tenderness Neurologic: Alert, oriented x3, cranial nerves intact, no motor or sensory deficit Psychiatric: normal affect, normal mood Skin: Warm, dry, intact ED Course Vital Signs 06/30/17 06/30/17 06/30/17 18:13 18:38 19:08 Temperature 98.2 F Pulse Rate 97 H Respiratory 18 18 18 Rate Blood Pressure 132/84 Blood Pressure [Right] O2 Sat by Pulse 100 Oximetry 06/30/17 06/30/17 06/30/17 22:50 22:58 23:01 Temperature 98.3 F Pulse Rate 81 72 Respiratory 14 16 Rate Blood Pressure 116/71 Blood Pressure 116/71 [Right] O2 Sat by Pulse 100 98 100 Oximetry - Reevaluation(s) Reevaluation #1: 07/01/17 01:34 Patient received Pepcid, Toradol, normal saline, and Zofran prior to my evaluation. Patient continues to have significant pain here for additional medications were ordered Reevaluation #2: 07/01/17 04:54 pt developed repeat n/v which improved with reglan and benadryl ED Medical Decision Making - Lab Data Result diagrams: 06/30/17 19:00 06/30/17 19:00 Lab Results 06/30/17 06/30/17 06/30/17 Range/Units 19:00 19:00 21:14 WBC 9.1 (4.5-11.0) K/mm3 RBC 4.64 (3.65-5.03) M/mm3 Hgb 12.5 (10.1-14.3) gm/dl Hct 38.9 (30.3-42.9) % MCV 84 (79-97) fl MCH 27 L (28-32) pg MCHC 32 (30-34) % RDW 15.7 H (13.2-15.2) % Plt Count 196 (140-440) K/mm3 Add Manual Diff Complete Total Counted 100 Seg Neuts % (Manual) 88.0 H (40.0-70.0) % Band Neutrophils % 0 % Lymphocytes % (Manual) 6.0 L (13.4-35.0) % Reactive Lymphs % (Man) 0 % Monocytes % (Manual) 4.0 (0.0-7.3) % Eosinophils % (Manual) 1.0 (0.0-4.3) % Basophils % (Manual) 0 (0.0-1.8) % Metamyelocytes % 1.0 % Myelocytes % 0 % Promyelocytes % 0 % Blast Cells % 0 % Nucleated RBC % Not Reportable Seg Neutrophils # Man 8.0 H (1.8-7.7) K/mm3 Band Neutrophils # 0.0 K/mm3 Lymphocytes # (Manual) 0.5 L (1.2-5.4) K/mm3 Abs React Lymphs (Man) 0.0 K/mm3 Monocytes # (Manual) 0.4 (0.0-0.8) K/mm3 Eosinophils # (Manual) 0.1 (0.0-0.4) K/mm3 Basophils # (Manual) 0.0 (0.0-0.1) K/mm3 Metamyelocytes # 0.1 K/mm3 Myelocytes # 0.0 K/mm3 Promyelocytes # 0.0 K/mm3 Blast Cells # 0.0 K/mm3 WBC Morphology Not Reportable Hypersegmented Neuts Not Reportable Hyposegmented Neuts Not Reportable Hypogranular Neuts Not Reportable Smudge Cells Not Reportable Toxic Granulation Not Reportable Toxic Vacuolation Not Reportable Dohle Bodies Not Reportable Pelger-Huet Anomaly Not Reportable Anneliese Rods Not Reportable Platelet Estimate Consistent w auto Clumped Platelets Not Reportable Plt Clumps, EDTA Not Reportable Large Platelets Not Reportable Giant Platelets Not Reportable Platelet Satelliting Not Reportable Plt Morphology Comment Not Reportable RBC Morphology Not Reportable Dimorphic RBCs Not Reportable Polychromasia Not Reportable Hypochromasia Rare Poikilocytosis Not Reportable Anisocytosis Rare Microcytosis Not Reportable Macrocytosis Not Reportable Spherocytes Not Reportable Pappenheimer Bodies Not Reportable Sickle Cells Not Reportable Target Cells Not Reportable Tear Drop Cells Not Reportable Ovalocytes Not Reportable Helmet Cells Not Reportable [place]-Ona Bodies Not Reportable [place] Rings Not Reportable [place] Cells Not Reportable Bite Cells Not Reportable Crenated Cell Not Reportable Elliptocytes Not Reportable Acanthocytes (Spur) Not Reportable Rouleaux Not Reportable Hemoglobin C Crystals Not Reportable Schistocytes Not Reportable Malaria parasites Not Reportable Manjit Bodies Not Reportable Hem Pathologist Commnt No Sodium 140 (137-145) mmol/L Potassium 4.2 (3.6-5.0) mmol/L Chloride 101.5 (98-107) mmol/L Carbon Dioxide 24 (22-30) mmol/L Anion Gap 19 mmol/L BUN 7 (7-17) mg/dL Creatinine 0.5 L (0.7-1.2) mg/dL Estimated GFR > 60 ml/min BUN/Creatinine Ratio 14 % Glucose 84 (65-100) mg/dL Calcium 9.0 (8.4-10.2) mg/dL Total Bilirubin 0.20 (0.1-1.2) mg/dL AST 19 (5-40) units/L ALT 17 (7-56) units/L Alkaline Phosphatase 113 (35-129) units/L Total Protein 7.6 (6.3-8.2) g/dL Albumin 4.3 (3.9-5) g/dL Albumin/Globulin Ratio 1.3 % Lipase (13-60) units/L Urine Color Yellow (Yellow) Urine Turbidity Clear (Clear) Urine pH 8.0 H (5.0-7.0) Ur Specific [place] 1.025 (1.003-1.030) Urine Protein 30 mg/dl (Negative) mg/dL Urine Glucose (UA) Neg (Negative) mg/dL Urine Ketones Neg (Negative) mg/dL Urine Blood Neg (Negative) Urine Nitrite Neg (Negative) Urine Bilirubin Neg (Negative) Urine Urobilinogen < 2.0 (<2.0) mg/dL Ur Leukocyte Esterase Sm (Negative) Urine WBC (Auto) 2.0 (0.0-6.0) /HPF Urine RBC (Auto) 1.0 (0.0-6.0) /HPF U Epithel Cells (Auto) 6.0 (0-13.0) /HPF Urine Bacteria (Auto) 1+ (Negative) /HPF Urine Mucus 1+ /HPF Urine HCG, Qual (Negative) 06/30/17 06/30/17 Range/Units 21:14 23:30 WBC (4.5-11.0) K/mm3 RBC (3.65-5.03) M/mm3 Hgb (10.1-14.3) gm/dl Hct (30.3-42.9) % MCV (79-97) fl MCH (28-32) pg MCHC (30-34) % RDW (13.2-15.2) % Plt Count (140-440) K/mm3 Add Manual Diff Total Counted Seg Neuts % (Manual) (40.0-70.0) % Band Neutrophils % % Lymphocytes % (Manual) (13.4-35.0) % Reactive Lymphs % (Man) % Monocytes % (Manual) (0.0-7.3) % Eosinophils % (Manual) (0.0-4.3) % Basophils % (Manual) (0.0-1.8) % Metamyelocytes % % Myelocytes % % Promyelocytes % % Blast Cells % % Nucleated RBC % Seg Neutrophils # Man (1.8-7.7) K/mm3 Band Neutrophils # K/mm3 Lymphocytes # (Manual) (1.2-5.4) K/mm3 Abs React Lymphs (Man) K/mm3 Monocytes # (Manual) (0.0-0.8) K/mm3 Eosinophils # (Manual) (0.0-0.4) K/mm3 Basophils # (Manual) (0.0-0.1) K/mm3 Metamyelocytes # K/mm3 Myelocytes # K/mm3 Promyelocytes # K/mm3 Blast Cells # K/mm3 WBC Morphology Hypersegmented Neuts Hyposegmented Neuts Hypogranular Neuts Smudge Cells Toxic Granulation Toxic Vacuolation Dohle Bodies Pelger-Huet Anomaly Anneliese Rods Platelet Estimate Clumped Platelets Plt Clumps, EDTA Large Platelets Giant Platelets Platelet Satelliting Plt Morphology Comment RBC Morphology Dimorphic RBCs Polychromasia Hypochromasia Poikilocytosis Anisocytosis Microcytosis Macrocytosis Spherocytes Pappenheimer Bodies Sickle Cells Target Cells Tear Drop Cells Ovalocytes Helmet Cells [place]-Ona Bodies Vail Rings [place] Cells Bite Cells Crenated Cell Elliptocytes Acanthocytes (Spur) Rouleaux Hemoglobin C Crystals Schistocytes Malaria parasites Manjit Bodies Hem Pathologist Commnt Sodium (137-145) mmol/L Potassium (3.6-5.0) mmol/L Chloride (98-107) mmol/L Carbon Dioxide (22-30) mmol/L Anion Gap mmol/L BUN (7-17) mg/dL Creatinine (0.7-1.2) mg/dL Estimated GFR ml/min BUN/Creatinine Ratio % Glucose (65-100) mg/dL Calcium (8.4-10.2) mg/dL Total Bilirubin (0.1-1.2) mg/dL AST (5-40) units/L ALT (7-56) units/L Alkaline Phosphatase (35-129) units/L Total Protein (6.3-8.2) g/dL Albumin (3.9-5) g/dL Albumin/Globulin Ratio % Lipase 30 (13-60) units/L Urine Color (Yellow) Urine Turbidity (Clear) Urine pH (5.0-7.0) Ur Specific [place] (1.003-1.030) Urine Protein (Negative) mg/dL Urine Glucose (UA) (Negative) mg/dL Urine Ketones (Negative) mg/dL Urine Blood (Negative) Urine Nitrite (Negative) Urine Bilirubin (Negative) Urine Urobilinogen (<2.0) mg/dL Ur Leukocyte Esterase (Negative) Urine WBC (Auto) (0.0-6.0) /HPF Urine RBC (Auto) (0.0-6.0) /HPF U Epithel Cells (Auto) (0-13.0) /HPF Urine Bacteria (Auto) (Negative) /HPF Urine Mucus /HPF Urine HCG, Qual Negative (Negative) - Radiology Data Radiology results: report reviewed Abdominal ultrasound: At least one tiny gallstone. No inflammatory changes. No biliary duct dilatation. 5 mm echogenic lesion at the superior margin of the right kidney compatible with tiny benign angiomyolipoma. No hydronephrosis - Medical Decision Making Right upper quadrant abdominal pain Diagnoses biliary colic No signs of cholecystitis Labs unremarkable Patient will be discharged with symptomatic treatment Pain and nausea improved at the morphine, multiple doses of Zofran Patient received IV fluids in the ED Surgical follow-up will be encouraged - Differential Diagnosis biliary colic, PUD, gastritis, pancreatitis, UTI Critical Care Time: No Critical care attestation.: If time is entered above; I have spent that time in minutes in the direct care of this critically ill patient, excluding procedure time. ED Disposition Clinical Impression: Biliary colic Disposition: TO HOME OR SELFCARE Is pt being admited?: No Does the pt Need Aspirin: No Condition: Stable Instructions: Biliary Colic (ED) Additional Instructions: Take the medication as prescribed. Return if symptoms worsen. Follow-up with the surgeon for further management of your gallbladder and to discuss treatment options Prescriptions: Famotidine [Pepcid] 20 mg PO BID #20 tablet HYDROcodone/ACETAMINOPHEN [[place] 5-325 Tablet] 1 each PO Q4-6H PRN #20 tablet PRN Reason: Pain Ondansetron [Zofran Odt] 4 mg PO Q8HR PRN #20 tab.rapdis PRN Reason: Nausea And Vomiting Promethazine [Phenergan] 25 mg NV Q6HR PRN #20 supp.rect PRN Reason: Nausea And Vomiting Referrals: KALI FOLEY MD [Staff Physician] - 3-5 Days (surgeon) PRIMARY CAREMD [Primary Care Provider] - 3-5 Days Time of Disposition: 05:05
[2017-07-01] MEDS ORDERED: REGLAN IV ONE (02:16)
[2017-07-01] MEDS ORDERED: BENADRYL IV ONE (02:16)
[2017-07-01 05:51] VITALS: BP 99/49
== END 2017-07-01 05:30 | disposition home or self-care (01) ==
LOC: ED 17:48
DX: K80.50 Calculus of bile duct without cholangitis or cholecystitis without obstruction (principal); Z88.5 Allergy status to narcotic agent
CPT/HCPCS: 36415; 76700; 80053; 81001; 81025; 83690; 85007; 85025; 96361; 96374; 96375; 96376; 99284; J1200; J1885; J2270; J2405; J2765; J7030

== ENCOUNTER 2018-04-08 12:24 | Emergency (ER) | payer MEDICAID ==
[2018-04-08 16:32] VITALS: BP 113/65
== END 2018-04-08 16:30 | disposition left against medical advice (07) ==
LOC: TRG 12:24 → ED 12:24 → TRG 12:25 → EDSTATUS 13:08 → TRG 15:29 → ED 16:30
DX: M54.9 Dorsalgia, unspecified (principal); Z53.21 Procedure and treatment not carried out due to patient leaving prior to being seen by health care provider

== ENCOUNTER 2018-09-05 05:22 | Inpatient (IN) | payer MEDICAID ==
[2018-09-05] MEDS ORDERED: PITOCin/NS 30 UNIT/500ML 30,000 MILLIUNITS/500 ML BAG IV ONE (05:32)
[2018-09-05] MEDS ORDERED: LACTATED RINGERS 1,000 ML ONE (05:33)
[2018-09-05] MEDS ORDERED: PITOCin/NS 20 UNIT/1000ML DRIP 20,000 MILLIUNITS/1,000 ML BAG IV ONE (05:33)
[2018-09-05] MEDS ORDERED: NACL 0.9% 500 ML 500 ML IV ONE (05:38)
[2018-09-05] MEDS ORDERED: QUELICIN ONE (05:40)
[2018-09-05] MEDS ORDERED: DIPRIVAN 10 MG/ML IV ONE ×2 (05:40→06:51)
[2018-09-05] MEDS ORDERED: XYLOCAINE CARDIAC IV ONE (05:40)
[2018-09-05] MEDS ORDERED: REGLAN IV ONE (05:42)
[2018-09-05] MEDS ORDERED: BICITRA PO ONE (05:42)
[2018-09-05] MEDS ORDERED: PEPCID IV ONE (05:42)
[2018-09-05] MEDS ORDERED: ceFAZolin 3 GM in NACL 0.9% 100 ML IV NR (05:45)
[2018-09-05] MEDS ORDERED: XYLOCAINE 2% INFILTRATI ONE (05:47)
[2018-09-05] MEDS ORDERED: NACL 0.9% IR ONE (05:50)
[2018-09-05] MEDS ORDERED: WATER FOR IRRIG STERILE IR ONE (05:50)
[2018-09-05] MEDS ORDERED: HEMABATE IM ONE ×2 (05:50→05:51)
[2018-09-05] MEDS ORDERED: METHERGINE IM ONE ×2 (05:50→05:51)
[2018-09-05] MEDS ORDERED: ANCEF/STERILE WATER 2 GM/20 ML 2 GM/20 ML SYRINGE IV ONE (05:51)
[2018-09-05] MEDS ORDERED: SUBLIMAZE ONE (05:56)
[2018-09-05] MEDS ORDERED: LACTATED RINGERS 1,000 ML IV SCH ×2 (06:00)
[2018-09-05] MEDS ORDERED: PITOCin/NS 20 UNIT/1000ML DRIP 20 UNITS/1,000 ML BAG IV SCH ×3 (06:00→08:00)
[2018-09-05 06:01] LABS: Hematocrit 28.8 % (30.3-42.9); Hemoglobin 8.8 gm/dl (10.1-14.3); Mean Corpuscular HGB Conc 31 % (30-34); Platelet Count 149 K/mm3 (140-440); Red Blood Count 4.33 M/mm3 (3.65-5.03); Red Cell Distribution Width 18.6 % (13.2-15.2)
[2018-09-05 06:05] LABS: Mean Corpuscular Volume 67 fl (79-97)
[2018-09-05] MEDS ORDERED: NACL 0.9% 1000 ML 1,000 ML ONE (06:18)
--- NOTE | 2018-09-05 06:56 | XRay Report ---
PROCEDURE: XR ABDOMEN 1V AP TECHNIQUE: An AP view of the lower abdomen and pelvis was obtained. HISTORY: POST SURGERY FB COUNT COMPARISONS: None FINDINGS: There is a 1 cm in dimension metallic foreign body superimposed over the left upper quadrant of the a bdomen. There are no additional foreign bodies seen. The bowel gas pattern is unremarkable. IMPRESSION: 1 cm metallic foreign body in the left upper quadrant. No other unusual findings.. This document is electronically signed by David Hernández MD., September 05 2018 06:53:35 AM ET
[2018-09-05] MEDS ORDERED: TUCKS PAD TP PRN (07:24)
[2018-09-05] MEDS ORDERED: LANSINOH TP PRN (07:24)
[2018-09-05] MEDS ORDERED: NARCAN 0.4 MG/1 ML IV PRN ×4 (07:24→08:59)
[2018-09-05] MEDS ORDERED: MYLICON PO PRN (07:26)
[2018-09-05] MEDS ORDERED: ZOFRAN IV PRN (07:26)
[2018-09-05] MEDS ORDERED: PHENERGAN PR PRN ×2 (07:26→07:53)
--- NOTE | 2018-09-05 07:36 | History and Physical Report ---
History of Present Illness Date of admission: 09/05/18 06:33 Chief complaint: abdominal pain History of present illness: 27yo presents to Labor and Delivery complaining of abdominal pain that began after waking up from sleep. She reports an episode of dizziness at home and recalls falling on her dresser. She was being observed in triage and she was found to be 3cm. She complained of loss of fluid in triage was taken to 2012 and upon lifting the sheet the bed was soaked in blood. I was called to the room at this time for concern for placental abruption. There was difficulty placing the large bore IV needles so decision was made to communicate with the patient, suggest a primary section and place IVs in the OR. Two units O negative blood was ordered. heart tones were confirmed 160-170s. Once in the operating room heart tones were established. The patient received her care at 15 weeks at [facility]. Her prenancy has been complicated by urinary tract infection, history of asthma and HSV2. Past History - Obstetrical History Expected Date of Delivery: 09/20/18 Actual Gestation: 37 Week(s) 6 Day(s) : 3 Medications and Allergies Allergies Allergy/AdvReac Type Severity Reaction Status Date / Time codeine Allergy Intermediate Vomiting Verified 04/08/18 13:26 Home Medications Medication Instructions Recorded Confirmed Last Taken Type Nitrofurantoin Macrocrystal 100 mg PO BID 04/08/18 04/08/18 04/08/18 History [Nitrofurantoin] Ferrous Sulfate [Feosol 325 MG tab] 325 mg PO BID 30 Days #60 tablet 09/05/18 Unknown Rx Ibuprofen 800 mg PO Q6H PRN 10 Days #30 09/05/18 Unknown Rx tablet MDD 3200mg oxyCODONE /ACETAMINOPHEN [Percocet 1 tab PO Q4HR PRN 14 Days #30 tab 09/05/18 Unknown Rx 5/325] Active Meds: Active Medications Lactated Ringer's (Lactated Ringers) 1,000 mls @ 2,250 mls/hr IV PREOP PAULO Stop: 09/06/18 06:27 Oxytocin/Sodium Chloride (Pitocin/Ns 20 Unit/1000ml Drip) 20 units in 1,000 mls @ 0 mls/hr IV TITR PAULO Lactated Ringer's (Lactated Ringers) 1,000 mls @ 125 mls/hr IV DIRECT PAULO Oxytocin/Sodium Chloride (Pitocin/Ns 20 Unit/1000ml Drip) 20 units in 1,000 mls @ 125 mls/hr IV DIRECT PAULO Results Result Diagrams: 09/05/18 05:45 Abnormal lab results 09/05/18 09/05/18 09/05/18 Range/Units 05:45 05:45 06:18 Hgb 8.8 L (10.1-14.3) gm/dl Hct 28.8 L (30.3-42.9) % MCV 67 L (79-97) fl MCH 20 L (28-32) pg RDW 18.6 H (13.2-15.2) % POC ABG pH 7.312 L (7.35-7.45) POC ABG pCO2 45.7 H (35-45) Crossmatch See Detail All other labs normal. Assessment and Plan - Patient Problems (1) 37 weeks gestation of Current Visit: Yes Status: Acute Plan to address problem: 2 large bore IV needles Draw CBC, TYPE AND SCREEN Transfuse 2 units pRBCs Risk, benefits and alternatives to primary csection discuxxed. Infomed consent signed. Proceed to OR. (2) Placental abruption Current Visit: Yes Status: Acute (3) Anemia associated with acute blood loss Current Visit: Yes Status: Acute
--- NOTE | 2018-09-05 07:45 | Operative Report ---
Operative Report Operative Report: DATE OF OPERATION 09/05/18 PREOP Diagnosis 1. 37 6/7 weeks gestation 2. Placental abruption PREOP Diagnosis 1. 37 6/7 weeks gestation 2. Placental abruption 3. Malpresentation - Santhosh Breech presentation Procedure: 1. Primary low-transverse section Findings 1. Viable feemale in the vertex presentation weighing 6lb 8oz, 2939g APGARS 3 at 1 min, 9 at 5 min 2. Normal bilateral uterus, ovaries and tubes Surgeon 1. Simona Gallegos MD Anesthesia: 1. General anesthesia I/O: EBL: 700ml intraop +500 L & D room - total 1400 IVF 1750ml LR, 2 units packed red blood cells O negative. Timeout done UOP 100ml Specimens removed: 1. Placenta Complications: none Disposition: Patient taken to recovery room in stable condition INDICATIONS: The patient is a 27yo [id number] at 37 6/7weeks that presented to L&D 3cm dilated. Upon spontaneous rupture of membranes, hemorrhaging was noted. heart tones were confirmed and she was consented for a to STAT primary section. The risks including but not limited to bleeding, infection, injury to surrounding organs, potential injury to mother/infant were discussed. All questions were answered and informed consent signed. PROCEDURE: The patient was taken to the OR in stable condition. A manriquez catheter was placed. She wore SCDs for DVT prophylaxis. And received Ancef for infection prophylaxis. The patient was prepped and draped in the usual fashion and an additional time out was done. Adequate anesthesia was achieved. A Pfannestiel incision was made in the skin and carried down to the fascia. The fascia was incised and the incision extended laterally. The superior and inferior aspect of the rectus muscle was dissected off of the fascia. Entry into the peritoneum was achieved and the incision was extended cranially and caudally. A low-transverse incision made made in the uterus and extended laterally. Membranes were ruptured and the fetus was noted to be in breech presentation. The left lower extremity was swept across abdomen and delivered, the body was then rotated and right lower extremity was delivered in the same fashion. The fetus was then delivered to the level of the scapula. The left upper extremity was delivered by applying pressure in the antecubital fossa, and sweeping the arm across the abdomen and delivering. The same maneuver was used to deliver the opposite upper extremity. Pressure was then applied to the maxilla, flexing the neck and head delivered. Cord was clamped, fetus was bulb suctioned and handed off to awaiting pediatric staff. The placenta was delivered with adherent membranes removed separately. 20 units of IV Pitocin was added to LR fluids. Methergine 0.2mg IM was given. The uterus was cleaned of all clots. The hysterotomy was repaired with 0-Vicryl in a running, locked stitch and an imbricating layer of the same suture was used. The rectus muscle was re-approximated with 2-0 Vicryl. Fascia was closed with 0 Vicryl. The Subcutaneous layer reapproximated with 2-0 Vicryl. The skin was then closed with 4-0 Vicryl. The patient tolerated the procedure well. All counts were correct x 3. Urine was noted to be clear at close of case. I was present and scrubbed for the entire procedure. The patient was taken to the recovery room in stable condition.
[2018-09-05] MEDS ORDERED: PHENERGAN PO PRN (07:53)
--- NOTE | 2018-09-05 07:57 | Post Anesthesia Evaluation ---
- Post Anesthesia Evaluation Patient Participated: Yes Airway Patent: Yes Stable Respiratory Function: Yes Nausea/Vomiting: No Temp > 96.8F: Yes Pain Manageable: No (Orders placed ) Adequeate Hydration: Yes Anesthesia Complications: No Block Receding Appropriately: Not Applicable Patient on Ventilator: No Other Comments: Patient complaining of abdominal pain. Post op orders placed
[2018-09-05] MEDS ORDERED: SODIUM CHLORIDE FLUSH SYRINGE 10 ML IV NR ×2 (08:00)
[2018-09-05] MEDS: DILAUDID IV PRN ×6 (08:10→10:09)
[2018-09-05] MEDS: TORADOL IV SCH ×3 (08:39→19:21)
[2018-09-05] MEDS ORDERED: DILAUDID PCA 6MG/30ML IV SCH (09:00)
[2018-09-05] MEDS ORDERED: DILAUDID IV PRN (09:48)
[2018-09-05] MEDS: ZOFRAN IV PRN ×2 (10:56→19:22)
[2018-09-05 11:01] LABS: Hematocrit 29.8 % (30.3-42.9); Hemoglobin 9.5 gm/dl (10.1-14.3); Mean Corpuscular HGB Conc 32 % (30-34); Mean Corpuscular Volume 73 fl (79-97); Platelet Count 115 K/mm3 (140-440); Red Blood Count 4.11 M/mm3 (3.65-5.03)
[2018-09-05 11:05] LABS: Red Cell Distribution Width 25.2 % (13.2-15.2)
[2018-09-05] MEDS: D5LR 1,000 ML IV SCH ×2 (12:05→19:22)
[2018-09-05 13:37] LABS: Hematocrit 26.5 % (30.3-42.9); Hemoglobin 8.5 gm/dl (10.1-14.3)
[2018-09-05 13:53] LABS: INR 1.04 (0.87-1.13)
[2018-09-05 13:54] LABS: Partial Thromboplastin Time 20.6 Sec. (24.2-36.6)
[2018-09-05 15:29] LABS: Band Neutrophils # (Manual) 0.3 K/mm3; Basophils % (Manual) 0 % (0.0-1.8); Eosinophils % (Manual) 0 % (0.0-4.3); Poikilocytosis 1+; Total Cells Counted 100
[2018-09-05 15:30] LABS: Ovalocytes Few; Platelet Estimate Consistent w Auto
[2018-09-05 20:02] LABS: Hematocrit 24.4 % (30.3-42.9); Hemoglobin 7.9 gm/dl (10.1-14.3)
[2018-09-05] MEDS ORDERED: MILK OF MAGNESIA PO PRN (22:00)
[2018-09-06] MEDS: D5LR 1,000 ML IV SCH (01:33)
[2018-09-06] MEDS: TORADOL IV SCH (01:42)
[2018-09-06] MEDS: IBUPROFEN PO PRN ×2 (09:35→16:30)
--- NOTE | 2018-09-06 09:58 | Progress Note ---
Assessment and Plan - Patient Problems (1) S/P Current Visit: Yes Status: Acute (2) Anemia associated with acute blood loss Current Visit: Yes Status: Acute Plan to address problem: P: 1. Infed 100 mg IM x 1 dose 2. Continue ferrous sulfate daily by mouth 3. Continue routine PP orders 4. Anticipate D/C home within 48 hrs Subjective - Subjective Date of service: 09/06/18 Principal diagnosis: Anemia Interval history: See: admission H & P; OB delivery summary Patient reports: appetite normal, voiding normally, ambulating normally, other (Reports pain control is better today with pain pump), no flatus [place]: bottle feeding Objective - Vital Signs Latest vital signs: Vital Signs Temp Pulse Resp BP BP Pulse Ox 09/06/18 07:54 97.4 F L 89 20 100/62 97 09/06/18 05:19 98.6 F 82 18 95/54 98 09/06/18 01:25 98.2 F 98 H 18 103/68 98 09/06/18 01:18 98.0 F 83 20 90/54 96 09/05/18 20:45 98.3 F 96 H 18 109/66 97 09/05/18 17:08 98.5 F 93 H 20 98/65 98 09/05/18 13:22 97.4 F L 93 H 24 109/60 97 09/05/18 10:40 98.1 F 132 H 26 H 117/81 99 09/05/18 10:30 107 H 20 125/81 99 09/05/18 10:10 111 H 20 117/81 99 09/05/18 10:00 20 Intake and Output 09/05/18 09/06/18 09/06/18 23:59 07:59 15:59 Intake Total 1150.417 892.917 Output Total 200 400 Balance 950.417 492.917 Intake: IV 910.417 772.917 D5lr 1,000 ml @ 125 mls/ 910.417 772.917 hr IV DIRECT PAULO Rx#: [id number] Oral 240 120 Output: Urine 200 400 Indwelling Catheter 200 400 Other: Total, Intake Amount 240 120 Total, Output Amount 200 400 # Voids Indwelling Catheter 1 - Exam Breasts: Present: normal Cardiovascular: Present: Regular rate Lungs: Present: Clear to auscultation, Normal air movement Abdomen: Present: soft, tenderness Uterus: Present: firm, fundal height below umbilicus (U-1) Deep Tendon Reflex Grade: Normal +2 Incision: Present: dressed (No shadow bleeding noted) - Labs Labs: Abnormal lab results 09/05/18 09/05/18 09/05/18 Range/Units 05:45 10:00 13:06 WBC 13.3 H (4.5-11.0) K/mm3 Hgb 9.5 L (10.1-14.3) gm/dl Hct 29.8 L (30.3-42.9) % MCV 73 L (79-97) fl MCH 23 L (28-32) pg RDW 25.2 H (13.2-15.2) % Plt Count 115 L (140-440) K/mm3 Seg Neuts % (Manual) 83.0 H (40.0-70.0) % Lymphocytes % (Manual) 7.0 L (13.4-35.0) % Monocytes % (Manual) 8.0 H (0.0-7.3) % Seg Neutrophils # Man 11.0 H (1.8-7.7) K/mm3 Lymphocytes # (Manual) 0.9 L (1.2-5.4) K/mm3 Monocytes # (Manual) 1.1 H (0.0-0.8) K/mm3 APTT 20.6 L (24.2-36.6) Sec. Crossmatch See Detail 09/05/18 09/05/18 Range/Units 13:06 19:32 WBC (4.5-11.0) K/mm3 Hgb 8.5 L 7.9 L (10.1-14.3) gm/dl Hct 26.5 L 24.4 L (30.3-42.9) % MCV (79-97) fl MCH (28-32) pg RDW (13.2-15.2) % Plt Count (140-440) K/mm3 Seg Neuts % (Manual) (40.0-70.0) % Lymphocytes % (Manual) (13.4-35.0) % Monocytes % (Manual) (0.0-7.3) % Seg Neutrophils # Man (1.8-7.7) K/mm3 Lymphocytes # (Manual) (1.2-5.4) K/mm3 Monocytes # (Manual) (0.0-0.8) K/mm3 APTT (24.2-36.6) Sec. Crossmatch
[2018-09-06] MEDS ORDERED: INFED IM NR (10:30)
[2018-09-06] MEDS: FEOSOL PO SCH (11:57)
[2018-09-06] MEDS: PERCOCET 5/325 PO PRN ×2 (12:50→20:57)
[2018-09-07] MEDS: PERCOCET 5/325 PO PRN ×3 (02:58→22:23)
--- NOTE | 2018-09-07 11:08 | Progress Note ---
Assessment and Plan A: POD #2 Asymptomatic Anemia P: Follow Routine PostOp Orders Continue PO FeSO4 Depo Provera 150mg IM x 1 dose prior to discharge Plans IUD at 6 weeks D/C home in the AM RTO in One Week Subjective - Subjective Date of service: 09/07/18 Principal diagnosis: Anemia Patient reports: appetite normal, voiding normally, pain well controlled, ambulating normally : doing well, bottle feeding Objective - Vital Signs Latest vital signs: Vital Signs Temp Pulse Resp BP BP Pulse Ox 09/07/18 02:58 16 09/07/18 00:00 98.7 F 69 16 104/78 09/06/18 20:57 20 09/06/18 16:53 98.3 F 97 H 20 105/60 97 Intake and Output 09/06/18 09/07/18 09/07/18 22:59 06:59 14:59 Intake Total 600 Output Total 800 Balance -200 Intake: Oral 600 Output: Urine 800 Void 800 Other: Total, Intake Amount 240 Total, Output Amount 800 - Exam Breasts: Present: normal Cardiovascular: Present: Regular rate Lungs: Present: Clear to auscultation, Normal air movement Abdomen: Present: normal appearance, soft, normal bowel sounds Uterus: Present: normal, firm, fundal height below umbilicus Extremities: Present: normal Incision: Present: normal, dry, intact
--- NOTE | 2018-09-07 11:10 | Discharge Summary ---
Providers - Providers Date of Admission: 09/05/18 06:33 Date of discharge: 09/08/18 Attending physician: SAMIR MCKEON MD Primary care physician: SAMIR MCKEON MD Hospitalization Reason for admission: vaginal bleeding Delivery: Procedure: primary low transverse Episiotomy: none Laceration: none Incision: normal, dry, intact Other procedures: none complications: none Discharge diagnosis: IUP at term delivered baby: female Condition at discharge: Good Disposition: [id number] TO HOME OR SELFCARE Plan - Discharge Medications Prescriptions: Ferrous Sulfate [Feosol 325 MG tab] 325 mg PO BID 30 Days #60 tablet Ibuprofen 800 mg PO Q6H PRN 10 Days #30 tablet MDD 3200mg PRN Reason: Pain, Moderate (4-6) oxyCODONE /ACETAMINOPHEN [Percocet 5/325] 1 tab PO Q4HR PRN 14 Days #30 tab PRN Reason: Pain , Severe (7-10) - Provider Discharge Summary Activity: routine, no sex for 6 weeks, no heavy lifting 4 weeks, no strenuous exercise Diet: routine Instructions: routine Additional instructions: [] Smoking cessation referral if applicable(refer to patient education folder for contact #) [] Refer to [facility]'s [facility] Booklet Call your doctor immediately for: * Fever > 100.5 * Heavy vaginal bleeding ( >1 pad per hour) * Severe persistent headache * Shortness of breath * Reddened, hot, painful area to leg or breast * Drainage or odor from incision. * Keep incision clean and dry at all times and follow doctor's instructions regarding bathing/showering - Follow up plan Follow up: SAMIR MCKEON MD [Primary Care Provider] - 7 Days
[2018-09-07] MEDS ORDERED: DEPO-PROVERA (CONTRACEPTION) IM NR (11:30)
[2018-09-07] MEDS: FEOSOL PO SCH (12:54)
[2018-09-07] MEDS: IBUPROFEN PO PRN (12:55)
[2018-09-08] MEDS: IBUPROFEN PO PRN (04:33)
[2018-09-08] MEDS: PERCOCET 5/325 PO PRN (09:46)
[2018-09-08] MEDS: FEOSOL PO SCH (09:48)
[2018-09-08] MEDS ORDERED: DEPO-PROVERA (CONTRACEPTION) IM NR (18:00)
[2018-09-08 19:02] VITALS: BP 108/69
== END 2018-09-08 18:00 | disposition home or self-care (01) | DRG 765 ==
LOC: TRG 05:22 → LD 05:24 → OB 10:33
PROVIDERS: ADMIT Obstetrics & Gynecology; ATTEND Obstetrics & Gynecology
PROC: 10D00Z1 Extraction of Products of Conception, Low, Open Approach (ICD-10-PCS; principal; 2018-09-05)
PROC: 30233N1 Transfusion of Nonautologous Red Blood Cells into Peripheral Vein, Percutaneous Approach (ICD-10-PCS; 2018-09-05)
PROC: 4A033R1 Measurement of Arterial Saturation, Peripheral, Percutaneous Approach (ICD-10-PCS; 2018-09-05)
DX: O45.93 Premature separation of placenta, unspecified, third trimester (principal); D62 Acute posthemorrhagic anemia; O32.1XX0 Maternal care for breech presentation, not applicable or unspecified; O32.9XX0 Maternal care for malpresentation of fetus, unspecified, not applicable or unspecified; O99.02 Anemia complicating childbirth; J45.909 Unspecified asthma, uncomplicated; O99.52 Diseases of the respiratory system complicating childbirth; Z3A.37 37 weeks gestation of pregnancy; Z37.0 Single live birth; Z88.5 Allergy status to narcotic agent; Z79.899 Other long term (current) drug therapy
CPT/HCPCS: 36415; 36430; 74018; 82803; 85007; 85014; 85018; 85025; 85027; 85384; 85610; 85730; 86592; 86850; 86900; 86901; 86920; 86922; 88307; G0378; J0330; J0690; J1050; J1170; J1750; J1885; J2001; J2210; J2405; J2590; J2704; J3010; J7030; J7120; J7121; P9016; Q0169